=== PATIENT | male | born 1985 | race Caucasian/White ===

== ENCOUNTER 2016-10-13 06:13 | Emergency (ER) | payer SELFPAY ==
--- NOTE | 2016-10-13 08:47 | RAD ---
LEFT HAND: Three views. HISTORY: Injury to hand. IMPRESSION: There is a transverse fracture involving the proximal diaphysis of the 5th metacarpal with slight di splacement and angulation. No other abnormality identified. POS: [facility]
--- NOTE | 2016-10-13 09:04 | RAD ---
LEFT HAND: INDICATION: Postreduction films obtained. COMPARISON: Earlier film which revealed fracture of the 5th metacarpal. FINDINGS/IMPRESSION: The transverse fracture involving the proximal diaphysis of the 5th metacarpal is again noted. Ther e has been some reduction in the angulation and displacement. Cast material is now in place. POS: [facility]
== END 2016-10-13 08:10 | disposition home or self-care (01) ==
LOC: MADERS 06:13
DX: S62.327A Displaced fracture of shaft of fifth metacarpal bone, left hand, initial encounter for closed fracture (principal); F17.210 Nicotine dependence, cigarettes, uncomplicated; V09.9XXA Pedestrian injured in unspecified transport accident, initial encounter
CPT/HCPCS: 26605; J2001

== ENCOUNTER 2021-01-15 16:33 | Emergency (ER) | payer OTHER, SELFPAY ==
[2021-01-15] MEDS ORDERED: Boostrix 0.5 ML (Tdap) VIAL ONE (17:27)
[2021-01-15] MEDS ORDERED: Lidocaine 1% w/Epinephrine 1:100K 20 ML VIAL ONE (17:27)
[2021-01-15] MEDS ORDERED: Ketorolac Tromethamine 30 MG/ML VIAL ONE (17:39)
[2021-01-15] MEDS ORDERED: Ondansetron ODT 4 MG TAB ONE (17:39)
[2021-01-15] MEDS ORDERED: Bacitracin 1 PK ONE (18:11)
[2021-01-15] MEDS ORDERED: Clindamycin 150 MG CAP ONE (18:23)
== END 2021-01-15 18:42 | disposition home or self-care (01) ==
LOC: MADERS 16:33
DX: S61.441A Puncture wound with foreign body of right hand, initial encounter (principal); F17.210 Nicotine dependence, cigarettes, uncomplicated; W27.8XXA Contact with other nonpowered hand tool, initial encounter; Y92.513 Shop (commercial) as the place of occurrence of the external cause; Y92.69 Other specified industrial and construction area as the place of occurrence of the external cause; Z23 Encounter for immunization
CPT/HCPCS: 10120; 90471; 90715; 96372; J1885; Q0162

== ENCOUNTER 2021-03-31 23:15 | Emergency (ER) | payer SELFPAY ==
[2021-03-31] MEDS ORDERED: Lidocaine Viscous Sol 2% 15 ml UD Cup ONE (23:45)
[2021-03-31] MEDS ORDERED: Mag-Al Plus 1200 MG/1200 MG/120 MG/30 ML UDCUP ONE (23:46)
[2021-03-31 23:57] LABS: #Basophils 0.1 thou/uL (0.0-0.2); #Eosinphils 0.3 thou/uL (0.0-0.7); #Lymphocytes 2.7 thou/uL (1.20-3.40); #Monocytes 1.1 thou/uL (0.11-0.59); #Neutrophils 6.2 thou/uL (1.40-6.50); %Basophils 0.9 % (0.0-1.0); %Eosinophils 2.8 % (0.0-10.0); %Lymphocytes 26.2 % (21.0-51.0); %Monocytes 10.3 % (0.0-10.0); %Neutrophils 59.8 % (42.0-75.0); Mean Corpuscular HGB CONC 33.6 g/dL (32.0-36.0); Mean Corpuscular Hemoglobin 30.1 pg (27.0-31.0); Mean Corpuscular Volume 89.7 fL (78.0-98.0); Mean Platelet Volume 6.7 fL (7.4-10.4); Platelet Count 281 thou/uL (130-400); Red Blood Cell (RBC) Count 5.33 mill/uL (4.70-6.10); White Blood Cell (WBC) Count 10.4 thou/uL (4.8-10.8)
[2021-04-01 00:14] LABS: ALT (SGPT) 13 U/L (8-55); AST (SGOT) 14 U/L (5-34); Albumin 4.2 g/dL (3.5-5.0); Alkaline Phosphatase 63 U/L (40-110); Anion Gap 14 mmol/L (10-20); BUN (Urea Nitrogen) 14 mg/dL (8.9-20.6); Bilirubin, Total 0.3 mg/dL (0.2-1.2); Calc. Creatinine Clearance 0 mL/min (70-130); Calcium 9.9 mg/dL (7.8-10.44); Carbon Dioxide 28 mmol/L (22-29); Chloride 103 mmol/L (98-107); Globulin 2.5 g/dL (2.4-3.5); Glucose 106 mg/dL (70-105); Lipase 9 U/L (8-78); Magnesium 1.9 mg/dL (1.6-2.6); Potassium 3.6 mmol/L (3.5-5.1); Protein, Total 6.7 g/dL (6.0-8.3); Sodium 141 mmol/L (136-145)
[2021-04-01] MEDS ORDERED: Acetaminophen 500 MG TAB ONE (00:30)
== END 2021-04-01 00:38 | disposition home or self-care (01) ==
LOC: MADERS 23:15
DX: R10.13 Epigastric pain (principal); F17.210 Nicotine dependence, cigarettes, uncomplicated
CPT/HCPCS: 80053; 83690; 83735; 85025

== ENCOUNTER 2024-01-07 15:00 | Emergency (ER) | payer SELFPAY | END 2024-01-07 17:15 | disposition home or self-care (01) | LOC: MADERS 15:00 | DX: R10.10 Upper abdominal pain, unspecified (principal); F17.210 Nicotine dependence, cigarettes, uncomplicated | CPT/HCPCS: 96372; 96374; 96375 ==